=== PATIENT | female | born 1940 | race Caucasian/White ===

== ENCOUNTER → 2018-04-10 09:50 | Outpatient (CLI) | payer OTHER, SELFPAY ==
--- NOTE | 2018-04-10 | DI.MG.S_ITS ---
BILATERAL DIGITAL SCREENING MAMMOGRAM 3D/2D WITH CAD: 04/10/2018 CLINICAL: Routine screening. Baseline exam. No prior exams were available for comparison. There are scattered fibroglandular elements in both breasts. Current study was also evaluated with a Computer Aided Detection (CAD) system. There are clustered fine calcifications in the left breast central to the nipple anterior depth. No other significant masses, calcifications, or other findings are seen in either breast. IMPRESSION: INCOMPLETE: NEEDS ADDITIONAL IMAGING EVALUATION The clustered fine calcifications in the left breast are indeterminate. Mediolateral, spot magnification, and additional views are recommended. This exam was interpreted at Station ID: [id number]. NOTE: For mammograms, a report in lay terms will be sent to the patient. Approximately 15% of breast malignancies will not be visualized mammographically. In the management of a palpable breast mass, a negative mammogram must not discourage biopsy of a clinically suspicious lesion. Electronically Signed By: Valerio kauffman/joceline:04/10/2018 11:58:17 letter sent: Additional Imaging Needed ACR BI-RADS Category 0: Incomplete 3340F
== END ==
PROVIDERS: PCP Physician Assistant; Visit Provider Physician Assistant
DX: Z12.31 Encounter for screening mammogram for malignant neoplasm of breast (principal)
CPT/HCPCS: 77063; 77067

== ENCOUNTER → 2018-04-23 16:00 | Outpatient (CLI) | payer OTHER, SELFPAY | PROVIDERS: Family Provider Physician Assistant; PCP Physician Assistant; Visit Provider Surgery | DX: Z01.818 Encounter for other preprocedural examination (principal); K21.9 Gastro-esophageal reflux disease without esophagitis | CPT/HCPCS: 93005 ==

== ENCOUNTER 2018-04-29 13:00 | Day surgery (SDC) | payer OTHER, SELFPAY ==
--- NOTE | 2018-04-29 | PATH_ITS ---
[facility] Accession Number: [id number] . 01 Material submitted: . PART A: DUODENAL BIOPSY PART B: ANTRUM BIOPSY PART C: GE JUNCTION . 02 Diagnosis: A. Duodenal Biopsy: Fragments of normal appearing duodenum mucosa. Normal delicate mucosal villi present. Negative for significant inflammation, dysplasia and malignancy. . B. Gastric Antrum, Biopsies: Superficial minimal chronic gastritis involving antral and fundic mucosa. Negative for evidence of Helicobacter on H/E stain. Negative for intestinal metaplasia. Negative for dysplasia and malignancy. . C. 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 Chronic inflammation with reactive epithelial changes, but negative for dysplasia and malignancy. Negative for squamous intraepithelial eosinophils. [facility]/04/30/2018 . 02 Electronically signed: . Sloan Blood MD, Pathologist NPI- [id number] . 01 Gross description: . Received three formalin-filled containers, each labeled with the patient's name: . A. In a container labeled duodenal, the specimen consists of a 0.3 cm portion of tissue, entirely submitted in cassette A. B. In a container labeled antrum, the specimen consists of two 0.1-0.2 cm portions of tissue, entirely submitted in cassette B. C. In a container labeled GE junction, the specimen consists of two 0.1-0.2 cm portions of tissue, entirely submitted in cassette C. ([id number]) /FRR . 02 Pathologist provided ICD-10: K22.70 . 02 CPT . 133551, 262321, 651823 Performed at: [address] [facility], [place], [place] [id number] MD Valerio Braga MD Phone: [phone] Performed at: 02 [facility] [id number] [place] [id number] MD Jim Lou MD Phone: [phone]
[2018-04-29 13:44] VITALS: BP 121/76; PULSE 94; RESP 15; TEMP 36.8; O2SAT 97; BMI 31.1
--- NOTE | 2018-04-29 14:10 | PM.HP.1 ---
History of Present Illness Date Patient Seen: 04/29/18 Time Patient Seen: 14:12 Chief complaint: 34419 Narrative: Very pleasant lady with a history of gastroesophageal reflux disease. She presents today for an EGD Patient History Surgical History History of tonsillectomy (Resolved) Family & Social History Family History: Reviewed 04/29/18 by Liliana Cho MD Social History: household members family Meds Home Medications Medication Instructions Recorded Confirmed Type albuterol sulfate 90 mcg/actuation 2 puff INHALATION Q4H PRN 03/17/18 04/29/18 History breath activated powder inhaler bimatoprost 0.01 % eye drops 1 drp OPHTHALMIC (EYE) QPM ml 03/17/18 04/29/18 History fenofibrate nanocrystallized 145 145 mg PO DAILY 03/17/18 04/29/18 History mg tablet lansoprazole 30 mg capsule,delayed 30 mg PO DAILY 03/17/18 04/29/18 History release losartan 50 mg tablet 50 mg PO DAILY 03/17/18 04/29/18 History metoclopramide 10 mg tablet 10 mg PO DAILY PRN tab 03/17/18 04/29/18 History polyethylene glycol 3350 17 See Label Instructions .ROUTE 03/17/18 04/29/18 History gram/dose oral powder .COMPLEX PRN gram Allergies Allergy/AdvReac Type Severity Reaction Status Date / Time No Known Drug Allergies Allergy Verified 04/29/18 13:29 Review of Systems Review of Systems All systems reviewed & are unremarkable except as noted in HPI and below Exam Vital Signs (past 8 hours): - 04/29/18 13:44 Temperature 98.2 F Pulse Rate 94 H Respiratory Rate 15 Blood Pressure 121/76 Pulse Oximetry 97 Oxygen Delivery Method Room Air Narrative Exam Narrative: Very pleasant elderly lady in no real distress. HEENT: Normocephalic and atraumatic, pupils equal round reactive to light accommodation with anicteric sclera Lungs: Clear to auscultation bilaterally Heart: Regular rate and rhythm Abdomen: Soft, nontender, active bowel sounds Extremities: Warm well perfused Assessment & Plan Plan: Assessment/Plan Narrative: Very pleasant 77-year-old lady who presents for an esophagogastroduodenoscopy. We discussed risks and benefits of the procedure the patient is expressed desire to complete it today
[2018-04-29] MEDS: TETRACAINE/BENZOCAINE/BUTAMBEN (CETACAINE) BOTTLE 1 SPRAY TOP (14:19)
[2018-04-29] MEDS: LIDOCAINE 4% SOLN 50 ML 20 ML TOP (14:19)
[2018-04-29] MEDS: MIDAZOLAM 5 MG/5 ML VIAL IV (14:20)
[2018-04-29] MEDS: fentaNYL 250 MCG/5 ML INJ IV (14:21)
--- NOTE | 2018-04-29 14:27 | PM.OP.1 ---
Operative Date/Time/Diagnoses Date of procedure: 04/29/18 Time of procedure: 14:28 Pre-op diagnosis: Gastroesophageal reflux disease Post-op diagnosis: same Procedure & Clinicians Procedure: Esophagogastroduodenoscopy Same procedure as scheduled: Yes Indications: Worsening abdominal pain resistant to medical treatment Surgeon: Liliana Cho Anesthesia Type: Sedation (Versed 2 mg; fentanyl 50 mcg) Operative Notes Findings: 1. Mild duodenitis 2. Significant linear gastritis without owen ulceration. 3. GE junction at 32 cm from the incisors 4. 6 cm hiatal hernia 5. Irregular Z-line without owen evidence of Giraldo's esophagus 6. Normal posterior oropharynx Closure Type: not applicable Specimen(s): other (See list) Procedure in detail: After obtaining informed consent, the patient was brought to the GI suite and placed in the left lateral decubitus position on the examination table. After placement of appropriate monitors, the patient was given incremental doses of Versed and Fentanyl until an appropriate level of sedation was achieved. A time out was held per SCOAP protocol. A bite block was gently placed between the patient's teeth. The endoscope was lubricated and then passed into the patient's posterior oropharynx. The esophagus was cannulated under direct vision and the scope was passed to the second portion of the duodenum without difficulty. The scope was then withdrawn with careful examination of all areas of the upper GI tract and mucosa. In the stomach, the instrument was retroflexed and the GE junction examined. The scope was straightened and the procedure continued with examination of the remainder of the upper GI tract. Findings are noted above. Air was aspirated from the stomach and the endoscope gently removed from the esophagus. The patient was allowed to awaken from sedation without difficulty and taken to the post-anesthesia care unit in good condition. Total sedation time was 12 min Complications: none Condition: stable Disposition: PACU Plan for aftercare: 1. Discharge to home 2. We will contact you with pathology results and recommendations
[2018-04-29 14:35] VITALS: BP 90/54; PULSE 74; RESP 10; TEMP 36.2; O2SAT 94
[2018-04-29 14:37] VITALS: BP 87/50; PULSE 72; RESP 12; O2SAT 93
[2018-04-29 14:41] VITALS: BP 80/49; PULSE 72; RESP 11; O2SAT 93
[2018-04-29 14:45] VITALS: BP 113/64; PULSE 75; RESP 18; TEMP 36.3; O2SAT 95
[2018-04-29 14:57] VITALS: BP 115/73; PULSE 74; RESP 12; TEMP 36.9; O2SAT 95
== END 2018-04-29 15:20 | disposition home or self-care (01) ==
PROVIDERS: Family Provider Physician Assistant; PCP Physician Assistant; Visit Provider Surgery
PROC: 0DJ08ZZ Inspection of Upper Intestinal Tract, Via Natural or Artificial Opening Endoscopic (ICD-10-PCS; CPT 43235; principal; 2018-04-29 14:00)
DX: K21.9 Gastro-esophageal reflux disease without esophagitis (principal); K29.80 Duodenitis without bleeding; K44.9 Diaphragmatic hernia without obstruction or gangrene
CPT/HCPCS: 43235; 99152; J2250; J3010

== ENCOUNTER → 2018-05-27 12:11 | Outpatient (CLI) | payer OTHER, SELFPAY ==
--- NOTE | 2018-05-27 | DI.MG.S_ITS ---
UNILATERAL LEFT DIGITAL DIAGNOSTIC MAMMOGRAM 3D/2D WITH ADDITIONAL VIEWS: 05/27/2018 CLINICAL: Additional evaluation requested from prior study. Comparison is made to exam dated: 04/10/2018 mammogram - [facility]. There are scattered fibroglandular elements in left breast. The left breast has post-operative findings. There is a focal asymmetry with grouped fine calcifications in the left breast at 1 o'clock middle depth. There also is a focal asymmetry with grouped fine calcifications in the left breast at 1 o'clock anterior depth. No other significant masses or calcifications are seen in the breast. IMPRESSION: INCOMPLETE: NEEDS ADDITIONAL IMAGING EVALUATION The focal asymmetry in the left breast at 1 o'clock middle depth is indeterminate. An ultrasound is recommended. The focal asymmetry in the left breast at 1 o'clock anterior depth is indeterminate. An ultrasound is recommended. Please note, if no mass is visualized on ultrasound associated with these calcifications, stereotactic biopsy is recommended. Additionally, prior mammograms would be helpful if available for comparison. This exam was interpreted at Station ID: [id number]. NOTE: For mammograms, a report in lay terms will be sent to the patient. Approximately 15% of breast malignancies will not be visualized mammographically. In the management of a palpable breast mass, a negative mammogram must not discourage biopsy of a clinically suspicious lesion. Electronically Signed By: Brenda kelley/:05/28/2018 06:36:49 Entry: - 05/28/2018 06:36:49 letter sent: Need Ultrasound ACR BI-RADS Category 0: Incomplete 3340F
== END ==
PROVIDERS: Family Provider Physician Assistant; PCP Physician Assistant; Visit Provider Physician Assistant
DX: R92.8 Other abnormal and inconclusive findings on diagnostic imaging of breast (principal)
CPT/HCPCS: 77065; G0279

== ENCOUNTER → 2019-06-22 13:06 | Outpatient (CLI) | payer OTHER, SELFPAY ==
--- NOTE | 2019-06-22 | DI.MG.S_ITS ---
BILATERAL DIGITAL SCREENING MAMMOGRAM 3D/2D WITH CAD: 06/22/2019 CLINICAL: Routine screening. Comparison is made to exams dated: 05/27/2018 mammogram, 04/10/2018 mammogram - [facility], and 03/30/2014 mammogram - [facility]. There are scattered fibroglandular elements in both breasts. Current study was also evaluated with a Computer Aided Detection (CAD) system. No significant masses, calcifications, or other findings are seen in either breast. There has been no significant interval change. IMPRESSION: NEGATIVE There is no mammographic evidence of malignancy. A 1 year screening mammogram is recommended. This exam was interpreted at Station ID: [id number]. NOTE: For mammograms, a report in lay terms will be sent to the patient. Approximately 15% of breast malignancies will not be visualized mammographically. In the management of a palpable breast mass, a negative mammogram must not discourage biopsy of a clinically suspicious lesion. Electronically Signed By: Charles trujillo/joceline:06/22/2019 14:49:51 letter sent: Normal Exam ACR BI-RADS Category 1: Negative 3341F
== END ==
PROVIDERS: Family Provider Physician Assistant; PCP Physician Assistant; Visit Provider Family Medicine
DX: Z12.31 Encounter for screening mammogram for malignant neoplasm of breast (principal)
CPT/HCPCS: 77063; 77067

== ENCOUNTER 2019-09-30 13:19 | Emergency (ER) | payer OTHER, SELFPAY ==
[2019-09-30] VITALS (8 sets, daily range): BP systolic 114–141; BP diastolic 58–70; PULSE 87–130; RESP 18–26; TEMP 37; O2SAT 93–97
--- NOTE | 2019-09-30 13:48 | DI.RAD.S_ITS ---
PROCEDURE: XR CHEST 1V INDICATIONS: chest pain TECHNIQUE: One view of the chest was acquired. COMPARISON: None. FINDINGS: Surgical changes and devices: None. Lungs and pleura: Lungs are difficult to accurately assess due to prominently reduced inspiratory volume bilaterally resulting in crowding of the bronchovascular markings. No pleural effusions or pneumothorax. Mediastinum: Mediastinal contours appear normal. Heart size is normal. Bones and chest wall: No suspicious bony lesions. Overlying soft tissues appear unremarkable. IMPRESSION: Prominently reduced inspiratory volume. There could be a mild pulmonary edema pattern superimposed but more likely the appearance is due to crowding of the bronchovascular markings. Dictated by: Lyle Alba M.D. on 09/30/2019 at 14:37 Approved by: Lyle Alba M.D. on 09/30/2019 at 14:38
--- NOTE | 2019-09-30 14:39 | ED.SOB ---
HPI - SOB/Dyspnea General Chief Complaint: Shortness of Breath/Dyspnea Stated Complaint: Persistent cough, shortness of breath Time Seen by Provider: 09/30/19 14:34 Source: patient and other (friend) Mode of arrival: Ambulatory Limitations: no limitations History of Present Illness HPI Narrative: Pleasant 78-year-old female comes emergency department with complaint of shortness of breath it has been going on for 2 weeks. Patient denies any chest pain or pressure. She has had a cough that is been nonproductive. No fevers or chills she denies any nasal congestion. She denies any abdominal pain. She has not had any orthopnea she states she is able to lie flat. She has some swelling in her lower extremities which she states is typical and has not had major changes or increases in swelling. Patient initially states she does not take medications but her friend reminded her that she does she takes hypertension medication, sometimes uses albuterol and Reglan Related Data Home Medications Medication Instructions Recorded Confirmed albuterol sulfate 90 mcg/actuation 2 puff INHALATION Q4H PRN 03/17/18 04/29/18 breath activated powder inhaler bimatoprost 0.01 % eye drops 1 drp OPHTHALMIC (EYE) QPM ml 03/17/18 04/29/18 fenofibrate nanocrystallized 145 145 mg PO DAILY 03/17/18 04/29/18 mg tablet lansoprazole 30 mg capsule,delayed 30 mg PO DAILY 03/17/18 04/29/18 release losartan 50 mg tablet 50 mg PO DAILY 03/17/18 04/29/18 metoclopramide HCl 10 mg tablet 10 mg PO DAILY PRN tab 03/17/18 04/29/18 polyethylene glycol 3350 17 See Rx Instructions .ROUTE 03/17/18 04/29/18 gram/dose oral powder .COMPLEX PRN gram Previous Rx's Medication Instructions Recorded albuterol sulfate 2 puff INHALATION Q4-6H PRN #8 gram 09/30/19 azithromycin See Rx Instructions .ROUTE 09/30/19 .COMPLEX #6 tab prednisone 50 mg PO DAILY #5 tab 09/30/19 Allergies Allergy/AdvReac Type Severity Reaction Status Date / Time No Known Drug Allergies Allergy Verified 04/29/18 13:29 Review of Systems Review of Systems ROS Unobtainable: All systems reviewed & are unremarkable except as noted in HPI and below Patient History Medical History (Updated 09/30/19 @ 18:23 by Nemo Anthony DO) Hypertension (Acute) Surgical History History of tonsillectomy (Resolved) Social History household members: family Smoking Status: Never smoker Smoking Status: Never smoker alcohol intake frequency: 0-2 drinks per day Substance Use Type: does not use Exam Narrative Exam Narrative: GEN: well nourished, well appearing obese elderly female, alert and oriented x 3, patient appears to be in mild distress. HEENT: Atraumatic, pupils are equal round reactive to light, extraocular movements are intact, nares are clear, throat is clear. HEART: Regular rate and rhythm without murmur, clicks, rubs. Pulses are equal in upper and lower extremities. Patient has nonpitting edema bilateral lower extremities. LUNGS:Lungs course bilaterally auscultation, no wheezes, rales, crackles, chest moves symmetrically, no tachypnea accessory muscle use. Coarse cough with inhalation. ABD:bowel sounds normal, soft, non-tender, no guarding, rebound, rigidity, no masses noted, no hepatosplenomegaly :No CVA tenderness MSCL: Non-tender, no muscle atrophy, muscles strength 5/5 upper and lower extremities, full range of motion SKIN: No rash, erythema or skin changes. Initial Vital Signs Initial Vital Signs: Vital Signs Temperature 98.6 F 09/30/19 13:41 Pulse Rate 100 H 09/30/19 13:41 Respiratory Rate 20 09/30/19 13:41 Blood Pressure 141/61 H 09/30/19 13:41 Pulse Oximetry 96 09/30/19 13:41 Course Orders Ordered: ED Orders 09/30/19 13:48 XR chest 1V Stat 09/30/19 13:57 EKG-12 Lead Stat 09/30/19 15:00 BNP [NT-proBNP (BNP-Adult 18+)] Stat Complete Blood Count AUTO DIFF Stat Comprehensive Metabolic Panel Stat Lipase Stat Partial Thromboplastin Time Stat Prothrombin Time INR Stat Troponin & CK Cardiac Panel Stat 09/30/19 16:44 Urinalysis and Microscopic Stat Discontinued Medications Albuterol/Ipratropium (Duoneb) 3 ml INH NOW ONE Stop: 09/30/19 16:25 Last Admin: 09/30/19 16:30 Dose: 3 ml Documented by: SHAUN Furosemide (Lasix) 40 mg IV NOW ONE Stop: 09/30/19 15:01 Last Admin: 09/30/19 15:21 Dose: 40 mg Documented by: MEISENB Methylprednisolone (Solu-Medrol 125 Mg Vial) 125 mg IV NOW ONE Stop: 09/30/19 16:25 Last Admin: 09/30/19 17:00 Dose: 125 mg Documented by: SILVIASENB Vital Signs Vital signs: Vital Signs - 8 hr 09/30/19 13:41 09/30/19 15:17 09/30/19 15:30 Temperature 98.6 F Pulse Rate 100 H 87 Respiratory Rate 20 18 Blood Pressure 141/61 H Blood Pressure [Left Arm] 138/64 126/58 L Pulse Oximetry 96 97 09/30/19 16:30 09/30/19 16:31 09/30/19 18:14 Temperature Pulse Rate 104 H 97 H 130 H Respiratory Rate 19 18 26 H Blood Pressure Blood Pressure [Left Arm] 114/64 Pulse Oximetry 96 95 94 09/30/19 18:15 Temperature Pulse Rate 102 H Respiratory Rate 24 Blood Pressure Blood Pressure [Left Arm] 118/70 Pulse Oximetry 94 MDM - SOB/Dyspnea Lab Data Attestation: I reviewed the patient's lab results. Result diagrams: 09/30/19 15:00 09/30/19 15:00 Labs: Lab Results 09/30/19 09/30/19 09/30/19 Range/Units 15:00 15:00 15:00 WBC 7.5 (4.5-11.0) X10^3/uL RBC 4.15 (4.0-5.2) X10^6/uL Hgb 12.3 (12.0-16.0) g/dL Hct 37.3 (36-46) % MCV 89.8 (80-100) fL MCH 29.5 (26-34) PG MCHC 32.9 (30-36) % RDW 13.2 (11.6-14.8) % Plt Count 246 (150-400) X10^3/uL Neut % (Auto) 66.9 (50-75) % Lymph % (Auto) 15.7 L (25-40) % [place] % (Auto) 12.1 (3-14) % Eos % (Auto) 4.8 H (2-4) % Baso % (Auto) 0.5 (0-2) % Neut # (Auto) 5000 (8183-3706) /uL Lymph # (Auto) 1200 (8472-2653) /uL [place] # (Auto) 900 (0-900) /uL Eos # (Auto) 400 (0-450) /uL Baso # (Auto) 0 (0-100) /uL PT 12.7 (10.1-12.7) SECONDS INR 1.1 (0.9-1.3) APTT 29 (26.4-36.2) SECONDS Sodium 138 (137-145) mmol/L Potassium 4.4 (3.4-5.1) mmol/L Chloride 101 (98-107) mmol/L Carbon Dioxide 30 (22-32) mmol/L BUN 22 H (7-17) mg/dL Creatinine 0.80 (0.52-1.04) mg/dL Estimated GFR > 60.0 (>60) mL/min BUN/Creatinine Ratio 27.5 H (6-22) Glucose 110 (80-110) mg/dL Calcium 10.1 (8.4-10.2) mg/dL Total Bilirubin 0.6 (0.2-1.3) mg/dL AST 27 (14-36) IU/L ALT 18 (<35) IU/L Alkaline Phosphatase 48 (38-126) U/L Total Creatine Kinase 52 (30-135) U/L CK-MB (CK-2) TNP CK-MB (CK-2) Rel Index TNP Troponin I < 0.012 (0.01-0.034) ng/mL NT-Pro-B Natriuret Pep (<450) pg/mL Total Protein 7.4 (6.3-8.2) g/dL Albumin 4.2 (3.5-5.0) g/dL Globulin 3.2 (1.7-4.1) g/dL Albumin/Globulin Ratio 1.3 (1.0-2.8) Lipase 76 (23-300) U/L Urine Color Urine Appearance Urine pH (4.5-8.0) Ur Specific [place] (1.000-1.035) Urine Protein (Negative) Urine Glucose (UA) (Negative) g/dL Urine Ketones (NEGATIVE) Urine Occult Blood (Negative) Urine Nitrate (Negative) Urine Bilirubin (NEGATIVE) Urine Urobilinogen (0.2) E.U./dL Ur Leukocyte Esterase (NEGATIVE) Urine RBC (0-5/HPF) Urine WBC (0-5/HPF) Urine Bacteria (None) Ur Culture Indicated? 09/30/19 09/30/19 Range/Units 15:00 16:44 WBC (4.5-11.0) X10^3/uL RBC (4.0-5.2) X10^6/uL Hgb (12.0-16.0) g/dL Hct (36-46) % MCV (80-100) fL MCH (26-34) PG MCHC (30-36) % RDW (11.6-14.8) % Plt Count (150-400) X10^3/uL Neut % (Auto) (50-75) % Lymph % (Auto) (25-40) % [place] % (Auto) (3-14) % Eos % (Auto) (2-4) % Baso % (Auto) (0-2) % Neut # (Auto) (8089-5259) /uL Lymph # (Auto) (6154-0979) /uL [place] # (Auto) (0-900) /uL Eos # (Auto) (0-450) /uL Baso # (Auto) (0-100) /uL PT (10.1-12.7) SECONDS INR (0.9-1.3) APTT (26.4-36.2) SECONDS Sodium (137-145) mmol/L Potassium (3.4-5.1) mmol/L Chloride (98-107) mmol/L Carbon Dioxide (22-32) mmol/L BUN (7-17) mg/dL Creatinine (0.52-1.04) mg/dL Estimated GFR (>60) mL/min BUN/Creatinine Ratio (6-22) Glucose (80-110) mg/dL Calcium (8.4-10.2) mg/dL Total Bilirubin (0.2-1.3) mg/dL AST (14-36) IU/L ALT (<35) IU/L Alkaline Phosphatase (38-126) U/L Total Creatine Kinase (30-135) U/L CK-MB (CK-2) CK-MB (CK-2) Rel Index Troponin I (0.01-0.034) ng/mL NT-Pro-B Natriuret Pep 255 (<450) pg/mL Total Protein (6.3-8.2) g/dL Albumin (3.5-5.0) g/dL Globulin (1.7-4.1) g/dL Albumin/Globulin Ratio (1.0-2.8) Lipase (23-300) U/L Urine Color Yellow Urine Appearance Sl cloudy Urine pH 6.5 (4.5-8.0) Ur Specific [place] 1.010 (1.000-1.035) Urine Protein Negative (Negative) Urine Glucose (UA) Negative (Negative) g/dL Urine Ketones Negative (NEGATIVE) Urine Occult Blood 1+ H (Negative) Urine Nitrate Negative (Negative) Urine Bilirubin Negative (NEGATIVE) Urine Urobilinogen 0.2 (0.2) E.U./dL Ur Leukocyte Esterase Trace H (NEGATIVE) Urine RBC 0-1/hpf (0-5/HPF) Urine WBC 0-1/hpf (0-5/HPF) Urine Bacteria None seen (None) Ur Culture Indicated? Cult not indicated Imaging Data Chest x-ray: Radiologist's Impression: Chart Viewer Diagnostics DATE TYPE STATUS AUTHOR Hx 09/30/19 13:48 Lyle Alba 06/22/19 00:00 Charles Ray 05/27/18 00:00 Brenda Velasquez 04/29/18 13:00 04/10/18 00:00 Valerio Flores Nancy L 78, F1940 [facility] ER, Main ED R04 Shortness of Breath/Dyspnea Search Chart No Data to Display ONSET Today 13:41 Mansi Vera 78 F [address] [address] XRay Report Signed Patient: Mansi Vrea LMR#: [id number] : 1940cct:[id number] Age/Sex: 78 / FDate of Service: 09/30/19 Loc: ED Accession Number: [id number] Procedure: XR chest 1V Ordering Provider: Nemo Anthony D.O. PROCEDURE: XR CHEST 1V INDICATIONS: chest pain TECHNIQUE: One view of the chest was acquired. COMPARISON: None. FINDINGS: Surgical changes and devices: None. Lungs and pleura: Lungs are difficult to accurately assess due to prominently reduced inspiratory volume bilaterally resulting in crowding of the bronchovascular markings. No pleural effusions or pneumothorax. Mediastinum: Mediastinal contours appear normal. Heart size is normal. Bones and chest wall: No suspicious bony lesions. Overlying soft tissues appear unremarkable. IMPRESSION: Prominently reduced inspiratory volume. There could be a mild pulmonary edema pattern superimposed but more likely the appearance is due to crowding of the bronchovascular markings. Dictated by: Lyle Alba M.D. on 09/30/2019 at 14:37 Approved by: Llye Alba M.D. on 09/30/2019 at 14:38 ECG Data Attestation: I personally reviewed and interpreted this ECG as follows: Prior ECG tracings: available for review Interpretation: Ventricular rate 97, P are 144 QRS is 72 and QTC 416. Poor left axis deviation. Patient has the T-wave inversion in V1 V2. Elevation depression noted. Patient has prior EKG from 04/23/2018 appears similar. MDM Narrative Medical decision making narrative: Patient comes in with shortness of breath she has some mild edema but states that is not any worse than normal. She has persistent cough. No fevers no respiratory symptoms recently. She does use albuterol intermittently. Patient was given a dose of Lasix initially but chest x-ray does not show pulmonary edema, troponin and BNP are normal range with normal renal function, electrolytes in no elevation in white count. Patient was given Solu-Medrol and a breathing treatment and had significant improvement in her symptoms. She was able to ambulate without any major decrease in her O2 sat and felt much better and not is dyspneic with ambulation. She has not any chest pain or pressure making ACS less likely or pulmonary emboli. Patient feels comfortable returning home plan to continue steroids for the short course, she may have some COPD so was started on azithromycin and given a spacer with training. Patient was asked to return if she has any new or worsening symptoms or is not improving. Spoke with sister Stew at home. She will help keep an eye on her at home. Discussed recommendations and work up and return. Discharge Plan Departure Patient Disposition: Home Clinical Impression: Bronchitis Instructions: DI for Acute Bronchitis Activity Restrictions/Additional Instructions: Follow-up with your physician in the next several days for recheck. Start steroids tomorrow, take antibiotics until gone. Use inhaler 1-2 puffs every 4 hours as needed. Use spacer when he using your albuterol inhaler Prescriptions sent to [facility] in [place]. Return to the ER for fevers greater 100.4 F, increasing shortness of breath, lightheadedness or passing out, new swelling in her extremities, wheezing, new chest pain or pressure, abdominal pain or other new or concerning symptoms. Prescriptions: New prednisone 50 mg tablet 50 mg PO DAILY Qty: 5 RF: 0 azithromycin 250 mg tablet See Rx Instructions .ROUTE .COMPLEX Qty: 6 RF: 0 albuterol sulfate 90 mcg/actuation HFA aerosol inhaler 2 puff INHALATION Q4-6H PRN (Reason: shortness of breath or wheezing) Qty: 8 RF: 0 No Action losartan 50 mg tablet 50 mg PO DAILY RF: 0 lansoprazole 30 mg capsule,delayed release(DR/EC) 30 mg PO DAILY RF: 0 polyethylene glycol 3350 17 gram/dose powder See Rx Instructions .ROUTE .COMPLEX PRN (Reason: Constipation) RF: 0 metoclopramide HCl 10 mg tablet 10 mg PO DAILY PRN (Reason: Indigestion) RF: 0 fenofibrate nanocrystallized 145 mg tablet 145 mg PO DAILY RF: 0 bimatoprost [Lumigan] 0.01 % drops 1 drp ophthalmic (eye) QPM RF: 0 albuterol sulfate 90 mcg/actuation aerosol powdr breath activated 2 puff INHALATION Q4H PRN (Reason: wheeze) RF: 0 Referrals: Thi Smith PA-C [Primary Care Provider] -
[2019-09-30] MEDS: FUROSEMIDE 40 MG/4 ML VIAL IV (15:21)
[2019-09-30 15:23] LABS: Add Manual Diff / Slide Review NO; Basophils Absolute Auto 0 /uL (0-100); Basophils Percent Auto 0.5 % (0-2); Eosinophils Absolute Auto 400 /uL (0-450); Eosinophils Percent Auto 4.8 % (2-4); Hematocrit 37.3 % (36-46); Hemoglobin 12.3 g/dL (12.0-16.0); Lymphocytes Absolute Auto 1200 /uL (1100-4500); Lymphocytes Percent Auto 15.7 % (25-40); Mean Corpuscular HGB Conc 32.9 % (30-36); Mean Corpuscular Hemoglobin 29.5 PG (26-34); Mean Corpuscular Volume 89.8 fL (80-100); Monocytes Absolute Auto 900 /uL (0-900); Monocytes Percent Auto 12.1 % (3-14); Neutrophils Absolute Auto 5000 /uL (1500-7000); Neutrophils Percent Auto 66.9 % (50-75); Platelet Count 246 X10^3/uL (150-400); Red Blood Cell Count 4.15 X10^6/uL (4.0-5.2); Red Cell Distribution Width 13.2 % (11.6-14.8); White Blood Cell Count 7.5 X10^3/uL (4.5-11.0)
[2019-09-30 15:37] LABS: INR 1.1 (0.9-1.3); Prothrombin Time 12.7 SECONDS (10.1-12.7)
[2019-09-30 15:39] LABS: PTT Partial Thromboplastin Tim 29 SECONDS (26.4-36.2)
[2019-09-30 15:43] LABS: Alanine Aminotransferase 18 IU/L (<35); Albumin 4.2 g/dL (3.5-5.0); Albumin Globulin Ratio 1.3 (1.0-2.8); Alkaline Phosphatase 48 U/L (38-126); Aspartate Aminotransferase 27 IU/L (14-36); BUN Creatinine Ratio 27.5 (6-22); Bilirubin Total 0.6 mg/dL (0.2-1.3); Blood Urea Nitrogen 22 mg/dL (7-17); Calcium 10.1 mg/dL (8.4-10.2); Carbon Dioxide 30 mmol/L (22-32); Chloride 101 mmol/L (98-107); Creatine Kinase 52 U/L (30-135); Estimated Glomerular Filt Rate > 60.0 mL/min (>60); Globulin 3.2 g/dL (1.7-4.1); Glucose 110 mg/dL (80-110); HEMOLYSIS < 15 (0-50); Lipase 76 U/L (23-300); Potassium 4.4 mmol/L (3.4-5.1); Sodium 138 mmol/L (137-145); Total Protein 7.4 g/dL (6.3-8.2)
[2019-09-30 15:55] LABS: Troponin I < 0.012 ng/mL (0.01-0.034)
[2019-09-30 16:04] LABS: NT-proBNP (BNP-Adult 18+) 255 pg/mL (<450)
[2019-09-30] MEDS: ALBUTEROL/IPRATROPIUM 3 ML AMPUL INH (16:30)
--- NOTE | 2019-09-30 16:34 | PC.NURSE ---
assisted with bs commode, pt voided, dyspneic on exertion.
[2019-09-30 16:46] LABS: Bacteria Urine None Seen
[2019-09-30 16:47] LABS: Appearance Urine UA SL CLOUDY; Bilirubin Urine UA NEGATIVE (NEGATIVE); Color Urine UA YELLOW; Glucose Urine UA NEGATIVE (Negative); Ketones Urine UA NEGATIVE (NEGATIVE); Leukocyte Esterase Urine UA TRACE (NEGATIVE); Nitrite Urine UA NEGATIVE (Negative); Occult Blood Urine UA 1+ (Negative); Protein Urine UA NEGATIVE (Negative); Urobilinogen Urine UA 0.2 E.U./dL (0.2)
[2019-09-30 16:48] LABS: pH Urine UA 6.5 (4.5-8.0)
[2019-09-30 16:52] LABS: Culture Indicated Urine Cult Not Indicated; RBC Urine 0-1/HPF (0-5/HPF); WBC Urine 0-1/HPF (0-5/HPF)
[2019-09-30] MEDS: methylPREDNISolone 125 MG/2 ML VIAL IV (17:00)
--- NOTE | 2019-09-30 18:14 | PC.NURSE ---
tolerated, at rest hr 102 sat 94% RA, bp 118/70
== END 2019-09-30 18:43 | disposition home or self-care (01) ==
PROVIDERS: Emergency Provider Emergency Medicine; Family Provider Physician Assistant; PCP Physician Assistant
DX: J40 Bronchitis, not specified as acute or chronic (principal)
CPT/HCPCS: 36415; 71045; 80053; 81001; 82550; 83690; 83880; 84484; 85025; 85610; 85730; 93005; 94640; 96374; 96375; 99284; 99285; J1940; J2930

== ENCOUNTER → 2020-03-21 14:31 | Outpatient (CLI) | payer OTHER, SELFPAY ==
[2020-03-23 17:08] LABS: COVID19 Sendout Not Detected (Not Detect)
== END ==
PROVIDERS: Family Provider Physician Assistant; PCP Physician Assistant; Visit Provider Physician Assistant
DX: Z11.59 Encounter for screening for other viral diseases (principal)
CPT/HCPCS: 87635

== ENCOUNTER 2020-03-24 09:40 | Day surgery (SDC) | payer OTHER, SELFPAY ==
[2020-03-24] VITALS (10 sets, daily range): BP systolic 110–129; BP diastolic 63–82; PULSE 58–99; RESP 10–20; TEMP 36–36.8; O2SAT 94–98; BMI 35.2
--- NOTE | 2020-03-24 | PATH_ITS ---
[facility] Accession Number: [id number] . 01 Material submitted: . esophagus, E-G Junction - GE JUNCTION . 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 Negative for dysplasia and malignancy. V 03/28/2020 0934 Local . 02 Electronically signed: . Marissa Martines MD, Pathologist NPI- [id number] . 01 Gross description: . Received in formalin, labeled with the patient's name, MRN and GE junction biopsy, are multiple trujillo-white irregular fragments of tissue ranging in size from 0.1 cm to 0.3 cm in greatest dimension. The specimen is filtered and entirely submitted in cassette A1. (SD/cmc10 [id number]) /[facility] 03/25/2020 1327 Local . 02 Pathologist provided ICD-10: K22.70 . 02 CPT . 802310 Performed at: 01 [facility] [address], [place], [place] [id number] MD Valerio Braga MD Phone: [phone] Performed at: 02 [facility] [address] [place], [place] [id number] MD Marissa Martines MD Phone: [phone]
[2020-03-24] MEDS: LACTATED RINGERS 1,000 ML 200 ML IV (10:16)
--- NOTE | 2020-03-24 11:24 | PM.PREOP ---
Pre-operative Note COVID-19 COVID-19 status: Negative Result date/Date tested (Pos, Neg/Pending): 03/21/20 Interval Note History & Physical reviewed/Exam performed by Physician: Yes Changes to H&P: No ASA Class (for procedural sedation): III
[2020-03-24] MEDS: LIDOCAINE 4% SOLN 50 ML 20 ML TOP (11:30)
[2020-03-24] MEDS: fentaNYL 250 MCG/5 ML INJ IV (11:34)
[2020-03-24] MEDS: MIDAZOLAM 5 MG/5 ML VIAL IV ×2 (11:35→11:40)
--- NOTE | 2020-03-24 11:46 | PM.OP.ENDO ---
Operative Date/Time/Diagnoses Date of procedure: 03/24/20 Time of procedure: 11:47 Pre-op diagnosis: History of Giraldo's esophagus Post-op diagnosis: same Procedure & Clinicians Study performed: EGD with cold biopsy Same procedure as scheduled: Yes Indications: Surveillance of Giraldo's Surgeon: Jose Tanner Procedure Notes SCOAP/Timeout: Perform Procedure in detail: The patient had topical anesthetic applied to oropharynx. She was placed in left lateral decubitus position and underwent cautious IV sedation directed by the surgeon consisting of fentanyl and Versed. A bite block was inserted and the scope was advanced through it into the esophagus. I noted prominent taste buds posterior tongue. The esophagus was unremarkable. GE junction was noted at perhaps 30 cm from the incisors. The junction was not distinct at all and the patient's hiatal hernia made it difficult to determine the exact location of the GE junction. The stomach insufflated well. There appeared to be a hiatal hernia. There were no lesions seen in the body, antrum or at the incisura. The pyloric channel was widely patent. The duodenum was unremarkable to the 4th part. The scope was brought back into the stomach and retroflexed. The proximal stomach was normal except for the hiatal hernia noted. The scope was straightened and brought out through the esophagus again. Multiple biopsies were taken of the region of Giraldo's. These were principally at about 26 cm from the incisors. There were some tiny nodules which I biopsied as part of these. No other lesions were seen. The scope was removed and the patient tolerated the procedure well. Scope withdrawal time: Not applicable Sedation minutes: 10 Findings: Giraldo's esophagus Specimen(s): other (GE junction region) Complications: none Post-procedure Recommendations: EGD in 3 years (If the patient's health is maintained and the biopsies do not show any dysplasia.) Follow up: as needed Disposition: PACU
--- NOTE | 2020-03-24 13:25 | SUR.PHASEII ---
Pt dressed with asisst, left when ready and brought out to car, d/c instructions discussed with sister who voiced an understanding.
== END 2020-03-24 12:45 | disposition home or self-care (01) ==
PROVIDERS: PCP Physician Assistant; Referring Provider Physician Assistant; Visit Provider Specialist
PROC: 0DJ08ZZ Inspection of Upper Intestinal Tract, Via Natural or Artificial Opening Endoscopic (ICD-10-PCS; CPT 43235; principal; 2020-03-24 10:45)
DX: K22.70 Barrett's esophagus without dysplasia (principal); K44.9 Diaphragmatic hernia without obstruction or gangrene; G80.9 Cerebral palsy, unspecified; I10 Essential (primary) hypertension; J45.909 Unspecified asthma, uncomplicated
CPT/HCPCS: 43239; 99152; J2250; J3010

== ENCOUNTER → 2020-05-13 14:44 | Outpatient (CLI) | payer OTHER, SELFPAY ==
--- NOTE | 2020-05-13 | DI.ECHO.S_ITS ---
[facility] +---------+ : : [address] : : : : [id number] : : : : Phone: [phone]+ Echocardiogram Report + + :Name: GHASSAN STACY Study Date: 05/13/2020 Height: 64 in : :[facility] Weight: 178 lb : : Gender: Female BSA: 1.9 m2 : :: 1940 Age: 79 yrs BP: 143/78 mmHg: :Reason For Study: Murmur : :Ordering Physician: TABATHA Ryan : :Jer[place] Performed By: Monique Hernandez : + + Interpretation Summary The study quality was technically difficult. The left ventricular cavity is small. The left ventricle is hyperdynamic. The ejection fraction is estimated to be 70-75%. All the valves were not well visualized however no significant abnormalities seen. There is a trivial to small pericardial effusion noted. There are no echocardiographic indications of cardiac tamponade. Procedure: A two-dimensional transthoracic echocardiogram with color flow and Doppler was performed. The study quality was technically difficult. There is no prior echocardiogram noted for this patient. The patient was in normal sinus rhythm during the exam. Left Ventricle: The left ventricular cavity is small. There is normal left ventricular wall thickness. There is no ventricular septal defect visualized. There is no thrombus. The ejection fraction is estimated to be 70-75%. The left ventricle is hyperdynamic. Regional wall motion abnormalities cannot be excluded due to limited visualization. E/E' med: 22.1. Right Ventricle: The right ventricle is not well visualized. The right ventricle is grossly normal size. The right ventricle is hyperdynamic. Atria: The left atrium is not well visualized. Right atrium not well visualized. Mitral Valve: The mitral valve is not well visualized. The mitral valve leaflets appear mildly thickened, but open well. No significant mitral valve stenosis. No significant mitral regurgitation. Aortic Valve: The aortic valve is not well visualized. The peak aortic velocity is 2.0 m/sec. The aortic valve mean gradient is 9.1 mmHg. There is no hemodynamically significant valvular aortic stenosis. No aortic regurgitation is present. Tricuspid Valve: The tricuspid valve is not well visualized. Pulmonary artery pressures cannot be estimated because of the lack of a measurable TR jet velocity. Pulmonic Valve: The pulmonic valve is not well seen, but is grossly normal. There is trace pulmonic regurgitation. Great Vessels: The aortic root is not well visualized. The ascending aorta is normal in size. The IVC has a measurement of 16 mm. The sniff test could not be successfully performed. Pericardium/ Pleura There is a trivial to small pericardial effusion noted. There is an anterior echo-free space consistent with a fat pad. There are no echocardiographic indications of cardiac tamponade. MMode/2D Measurements & Calculations LVIDd: 3.6 cm asc Aorta Diam: 2.8 cm IVSd: 0.98 cm LVPWd: 0.74 cm LV arevalo. diameter/BSA (cm/m^2): 1.9 IVC diam: 1.6 cm Doppler Measurements & Calculations Ao V2 max: 202.4 cm/sec LVOT Max Mauro: 88.9 cm/sec Ao V2 mean: 143.4 cm/sec LV V1 max P.2 mmHg Ao max P.4 mmHg LV V1 VTI: 17.5 cm Ao mean P.1 mmHg sev ratio: 0.47 Ao V2 VTI: 36.8 cm MV E max mauro: 55.8 cm/sec PA V2 max: 97.0 cm/sec MV A max mauro: 70.4 cm/sec PA V2 mean: 61.1 cm/sec MV E/A: 0.79 PA mean P.8 mmHg Med Peak E' Mauro: 2.5 cm/sec PA Accel Time: 0.08 sec E/E' med: 22.1 MV dec time: 0.25 sec MV P1/2t: 75.7 msec MV P1/2t max mauro: 57.1 cm/sec MVA(P1/2t): 2.9 cm2 Reading Physician:06:50 PM
== END ==
PROVIDERS: PCP Physician Assistant; Referring Provider Physician Assistant; Visit Provider Physician Assistant
DX: R01.1 Cardiac murmur, unspecified (principal)
CPT/HCPCS: 93306